=== PATIENT | male | born 1985 | race African-American/Black ===

== ENCOUNTER 2017-03-13 15:31 | Emergency (ER) | payer OTHER ==
[~2017-03-13] VITALS: Ht 172.7 cm; Wt 61.4 kg
[2017-03-13] MEDS ORDERED: SERT50TA12 PO (16:00)
[2017-03-13 16:07] VITALS: BP 124/64
== END 2017-03-13 16:50 | disposition home or self-care (01) ==
LOC: EMS 15:34
DX: J45.909 Unspecified asthma, uncomplicated (principal); F12.90 Cannabis use, unspecified, uncomplicated
CPT/HCPCS: 99283